=== PATIENT | male | born 1945 | race Caucasian/White ===

== ENCOUNTER 2023-10-19 08:02 | Emergency (ER) | payer MEDICARE ==
[~2023-10-19] VITALS: Ht 160 cm; Wt 62.0 kg
[2023-10-19 08:12] VITALS: BP 126/57; PULSE 81; RESP 16; O2SAT 98
[2023-10-19 10:08] VITALS: TEMP 98.6
== END 2023-10-19 10:10 | disposition home or self-care (01) ==
LOC: ER 08:02
DX: R05.9 Cough, unspecified (principal); Z20.822 Contact with and (suspected) exposure to COVID-19; F17.200 Nicotine dependence, unspecified, uncomplicated
CPT/HCPCS: 36415; 71045; 87811; 99284